=== PATIENT | male | born 1965 | race Caucasian/White ===

== ENCOUNTER 2017-09-16 14:26 | Observation (INO) ==
--- NOTE | 2017-09-16 18:28 | Internal Med History&Physical ---
Date of Encounter: 10/11/17 Time of Encounter: 18:27 Assessment and Plan (1) Chest pain Status: Inactive ASSESSMENT: - Chest pain DD *CAD *Muskuloskeletal CP - myofascial strain, costochondritis *GERD *Esophageal spasm PLAN: - cardiac enzymes x 2 q 8 hr - EKG now and in AM - ASA - O2 by NC to keep SpO2 greater than 92% - UA - Urine toxic screen - CBCD, BMP in AM - Fasting lipids - Morphine 2 mg IV q 2-4 hr PRN chest pain - Tylenol 650 mg PO q 4-6 hr PRN headache - Home meds (check list) - 2D Echo - Cardiology consult Qualifiers: Qualified Code(s): R07.9 - Chest pain, unspecified (2) Hyperlipemia Status: Acute Qualifiers: Hyperlipidemia type: unspecified Qualified Code(s): E78.5 - Hyperlipidemia , unspecified (3) Depression Status: Acute Qualifiers: Qualified Code(s): F32.9 - Major depressive disorder, single episode, unspecified (4) Diabetes Status: Acute We will hold metformin , stat acu- check with coverage (5) DVT prophylaxis Status: Acute The patient is admitted for observation and ambulatory, [place] [facility] [place] - H&P: HPI Chief complaint: CP Admitted From: Home Plans for Post Hospital Care: Home History of present illness: Mr. Llanos is a 51 year old male presents emergency department complaining of intermittent and progressively worsening chest pain for a couple of weeks The pain is a pressure and sharp pain that makes the left side of his neck and his left arm feel numb and is aggravated by exertion even standing up and associated with SOB, he was admitted to r/o ACS. Past Med Surg Social Fam HX - Past Medical History Medical history: diabetes, hyperlipidemia Psychiatric history: no psych history - Social History Smoking Status: Never smoker Smokeless Tobacco Status: No Alcohol use: none Drug use: none Internal Medicine - H&P: Meds Pravastatin Sodium [Pravachol] 40 mg PO DAILY 09/16/17 [History] Sertraline [Zoloft] 100 mg PO DAILY 09/16/17 [History] metFORMIN [Glucophage] 500 mg PO BID 09/16/17 [History] 3 Allergy/AdvReac Type Severity Reaction Status Date / Time No Known Allergies Allergy Verified 09/16/17 11:55 All Systems PM: A 10-system review of systems was performed and is negative for pertinent findings except as documented above in the HPI. - Constitutional Constitutional: no chills, no fever(s), no night sweats - Cardiovascular Cardiovascular ROS IM: chest pain, dyspnea, no diaphoresis, no lightheadedness, no palpitations, no syncope - Respiratory Respiratory: no cough, no dyspnea, no wheezing, no excessive phlegm production - Gastrointestinal Gastrointestinal: no abdominal pain, no diarrhea, no hematemesis, no hematochezia, no melena, no nausea, no vomiting - Neurological Neurological ROS: no confusion, no convulsions, no focal weakness, no numbness, no tingling, no tremor(s) - Head Head exam: Present: atraumatic, normocephalic - Neck Neck exam general surgery: Present: supple, trachea midline. Absent: lymphadenopathy - Respiratory Respiratory exam: Present: CTAB. Absent: accessory muscle use, rales, rhonchi, wheezes - Cardiovascular Cardiovascular exam: Present: RRR, +S1, +S2. Absent: diastolic murmur, gallop, rubs, systolic murmur - GI/Abdominal GI/Abdominal exam: Present: normal bowel sounds, soft, no peritoneal signs. Absent: distended, tenderness - Extremities Exam Extremities exam: Present: warm, radial pulses palpable and symmetrical. Absent : calf tenderness, cyanotic, pedal edema Internal Med - H&P Results - Labs CBC & Chem 7: 09/19/17 08:31 09/19/17 08:31
[2017-09-16] MEDS ORDERED: *HR* Morphine 2 MG/ML SYRINGE IVP PRN (18:31)
[2017-09-16] MEDS ORDERED: Nitroglycerin 0.4 MG TAB.SUBL SL PRN (18:31)
[2017-09-16] MEDS ORDERED: Ondansetron 4 MG/2 ML VIAL IVP PRN (18:31)
[2017-09-16] MEDS ORDERED: D5% in Water 1,000 ML IVC PRN (18:36)
[2017-09-16] MEDS ORDERED: Dextrose Gel 15 GM/37.5 ML TUBE PO PRN ×2 (18:36)
[2017-09-16] MEDS ORDERED: *HR* Dextrose 50 % in Water (Syg) 50 ML SYRINGE IVP PRN (18:36)
[2017-09-16] MEDS: Insulin LISPRO 300 UNITS/3 ML VIAL SQ SCH (21:11)
[2017-09-17 05:22] LABS: Hemoglobin A1C 7.6 %
[2017-09-17 05:25] LABS: Alanine Aminotransferase 37 Units/L (7-52); Albumin/Globulin Ratio 1.4 (1.1-2.2); Alkaline Phosphatase 76 Units/L (34-104); Aspartate Amino Transferase 22 Units/L (13-39); BUN/Creatinine Ratio 20 (6-26); Bilirubin,Direct 0.1 mg/dL (0.0-0.2); Bilirubin,Indirect 0.4 mg/dL (0.0-1.2); Bilirubin,Total 0.5 mg/dL (0.3-1.0); Blood Urea Nitrogen 20 mg/dL (6-20); Calcium 8.8 mg/dL (8.6-10.3); Carbon Dioxide 25 mEq/L (23-29); Chloride 103 mEq/L (98-107); Chol/HDL Ratio 4.8 (0-4.9); Cholesterol 172 mg/dL (< 200); Globulin 2.8 g/dL (2.4-3.5); Glucose 151 mg/dL (70-105); HDL Cholesterol 36 mg/dL (40-59); LDL Cholesterol,Calculated 71 mg/dL (0-99); Magnesium 1.9 mg/dL (1.6-2.6); Osmolality,Calculated 286 (280-300); Potassium 4.2 mEq/L (3.5-5.1); Sodium 135 mEq/L (136-145); Total Protein 6.8 g/dL (6.4-8.9); Triglycerides 326 mg/dL (< 150); eGFR For African Americans > 60 (> 60); eGFR For Non-African Americans > 60 (> 60)
[2017-09-17 05:39] LABS: INR 1.1; Thyroid Stimulating Hormone 2.575 mcIU/mL (0.340-5.600)
[2017-09-17 05:41] LABS: Activated Partial Thrombo Time 28.3 Seconds (26.0-36.0)
[2017-09-17 05:43] LABS: Basophils # 0.1 K/mcL (0.0-0.2); Basophils % 0.7 %; Eosinophils # 0.1 K/mcL (0.0-0.6); Eosinophils % 1.3 %; Hematocrit 48.1 % (37.5-50.1); Hemoglobin 15.9 g/dL (12.9-16.9); Immature Granulocytes % 1.1 % (0-4); Lymphocytes # 2.2 K/mcL (0.6-4.6); Lymphocytes % 24.1 %; Mean Corpuscular HGB Conc 33.1 g/dL (31.6-35.5); Mean Corpuscular Hemoglobin 29.2 pg (28.0-33.3); Mean Corpuscular Volume 88.4 fL (83.0-100.0); Mean Platelet Volume 10.6 fL (9.4-12.4); Monocytes # 0.7 K/mcL (0.0-1.3); Neutrophils # 5.8 K/mcL (1.6-8.9); Platelet Count 157 K/mcL (140-400); Red Blood Count 5.44 M/mcL (4.19-5.50); Red Cell Distribution Width 13.6 % (11.5-14.5); Segmented Neutrophils % 64.8 %
[2017-09-17] MEDS: Insulin LISPRO 300 UNITS/3 ML VIAL SQ SCH ×4 (08:57→22:20)
[2017-09-17] MEDS: Aspirin 81 MG TAB.CHEW PO SCH (08:58)
--- NOTE | 2017-09-17 17:19 | Internal Med Progress Note ---
Date of Encounter: 09/17/17 Time of Encounter: 11:00 - Assessment and plan (1) Chest pain Current Visit: Yes Status: Acute Assessment and plan: Patient no longer having chest pain this morning. Cardiac enzymes have been negative thus far. Echocardiogram showed mild diastolic dysfunction Nuclear stress test scheduled for 09/18/17 Qualifiers: Chest pain type: unspecified Qualified Code(s): R07.9 - Chest pain, unspecified (2) Mood disorder Current Visit: Yes Status: Acute Assessment and plan: -Continue SSRI (3) Hyperlipemia Current Visit: Yes Status: Acute Assessment and plan: -Continue statin Qualifiers: Hyperlipidemia type: unspecified Qualified Code(s): E78.5 - Hyperlipidemia , unspecified (4) Diabetes Current Visit: Yes Status: Acute Assessment and plan: -Cover with sliding scale insulin Qualifiers: Diabetes mellitus type: type 2 Diabetes mellitus complication status: without complication Diabetes mellitus [facility] insulin use: with [facility] use Qualified Code(s): E11.9 - Type 2 diabetes mellitus without complications ; 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 Enzymes have been negative thus far. Echocardiogram showed mild diastolic dysfunction Nuclear stress test scheduled for 09/18/17 - Constitutional Vitals: Temp Pulse Resp BP Pulse Ox 97.9 F 99 18 131/87 93 09/17/17 15:29 09/17/17 15:29 09/17/17 15:29 09/17/17 15:29 09/17/17 15:29 - Cardiovascular Cardiovascular exam: Present: RRR, +S1, +S2. Absent: diastolic murmur, gallop, rubs, systolic murmur Internal Medicine: Result - Labs CBC & Chem 7: 09/17/17 05:02 09/17/17 05:02 Labs: Short CBC 09/17/17 Range/Units 05:02 WBC 8.9 (4.3-11.1) K/mcL Hgb 15.9 (12.9-16.9) g/dL Hct 48.1 (37.5-50.1) % Plt Count 157 (140-400) K/mcL Neutrophils # 5.8 (1.6-8.9) K/mcL BMP 09/17/17 05:02 Sodium 135 L Potassium 4.2 Chloride 103 Carbon Dioxide 25 BUN 20 Creatinine 1.01 Glucose 151 H Calcium 8.8 Cardiac Enzymes 09/17/17 Range/Units 08:13 Troponin I < 0.03 (< 0.04) ng/mL Liver Function 09/17/17 Range/Units 05:02 Total Bilirubin 0.5 (0.3-1.0) mg/dL Direct Bilirubin 0.1 (0.0-0.2) mg/dL AST 22 (13-39) Units/L ALT 37 (7-52) Units/L Alkaline Phosphatase 76 (34-104) Units/L Albumin 4.0 (3.5-5.7) g/dL - ABG Interpretation ABG results: PT/INR, D-dimer PT 12.0 Seconds (9.4-12.1) 09/17/17 05:02 - Impressions Impressions Echocardiogram 09/17/17 18:31 Impressions: LVEF 50-55%. Normal LV chamber size, wall thickness and function. Mild left ventricular diastolic dysfunction. Normal right ventricular structure and function. Unable to estimate RVSP due to lack of TR jet. No significant valvular dysfunction. Left Ventricular Wall Motion: Rest Echo Findings All wall segments showed normal motion. Findings: Study Quality * Technically sub-optimal due to body habitus. ECG Findings * Normal sinus rhythm. Left Ventricle * LVEF 50-55%. * Normal LV chamber size, wall thickness and function. * Mild left ventricular diastolic dysfunction. Right Ventricle * Normal right ventricular structure and function. Left Atrium * Mild to moderately dilated left atrium. Right Atrium * Mildly dilated right atrium. Interatrial Septum * Interatrial septum not well evaluated. Aortic Valve * Trileaflet aortic valve with normal function. * No aortic regurgitation. * No aortic stenosis. Mitral Valve * Normal mitral valve structure and function. * No mitral stenosis. * No mitral regurgitation. Tricuspid Valve * Normal tricuspid valve structure and function. * No tricuspid regurgitation. * Unable to estimate RVSP due to lack of TR jet. Pulmonic Valve * Normal pulmonic valve structure and function. * No pulmonic regurgitation. Aorta * Normally sized aortic root. Pericardium * The pericardium appears normal. IVC * The IVC is not well evaluated. Pulmonary Artery * Normal visualized portions of the main pulmonary artery. Consult Discharge Plan - Plan Referrals: Alyx Diehl CNP [Primary Care Provider] -
[2017-09-18] MEDS ORDERED: Regadenoson 0.4 MG/5 ML SYRINGE IVP ONE (06:10)
[2017-09-18] MEDS: Insulin LISPRO 300 UNITS/3 ML VIAL SQ SCH ×4 (09:54→21:57)
[2017-09-18] MEDS: Aspirin 81 MG TAB.CHEW PO SCH (09:55)
--- NOTE | 2017-09-18 19:06 | Internal Med Progress Note ---
Date of Encounter: 09/18/17 Time of Encounter: 11:00 - Assessment and plan (1) Chest pain Current Visit: Yes Status: Acute Assessment and plan: Patient no longer having chest pain this morning. Cardiac enzymes have been negative thus far. Echocardiogram showed mild diastolic dysfunction Second part of nuclear stress test scheduled for 09/19/17 Qualifiers: Chest pain type: unspecified Qualified Code(s): R07.9 - Chest pain, unspecified (2) Mood disorder Current Visit: Yes Status: Acute Assessment and plan: -Continue SSRI (3) Hyperlipemia Current Visit: Yes Status: Acute Assessment and plan: -Continue statin Qualifiers: Hyperlipidemia type: unspecified Qualified Code(s): E78.5 - Hyperlipidemia , unspecified (4) Diabetes Current Visit: Yes Status: Acute Assessment and plan: -Cover with sliding scale insulin Qualifiers: Diabetes mellitus type: type 2 Diabetes mellitus complication status: without complication Diabetes mellitus [facility] insulin use: with [facility] use Qualified Code(s): E11.9 - Type 2 diabetes mellitus without complications ; Z79.4 - ferry terminal supervisor (current) use of insulin; Z79.4 - ferry terminal supervisor (current) use of insulin; Z79.4 - ferry terminal supervisor (current) use of insulin; Z79.4 - senior care ( current) use of insulin - Subjective Interval history: Patient here for ACS rule out and no longer having chest pain this morning. Enzymes have been negative thus far. Echocardiogram showed mild diastolic dysfunction Second part of nuclear stress test scheduled for 09/19/17 - Constitutional Vitals: Temp Pulse Resp BP Pulse Ox 97.8 F 90 24 121/81 94 09/18/17 18:44 09/18/17 18:44 09/18/17 18:44 09/18/17 18:44 09/18/17 18:44 - Respiratory Respiratory exam: Present: CTAB. Absent: accessory muscle use, rales, rhonchi, wheezes - Cardiovascular Cardiovascular exam: Present: RRR, +S1, +S2. Absent: diastolic murmur, gallop, rubs, systolic murmur Internal Medicine: Result - Labs CBC & Chem 7: 09/17/17 05:02 09/17/17 05:02 - ABG Interpretation ABG results: PT/INR, D-dimer PT 12.0 Seconds (9.4-12.1) 09/17/17 05:02 - VTE Documentation of Mechanical Device: Intermittent pneumatic compression device Consult Discharge Plan - Plan Referrals: Alyx Diehl CNP [Primary Care Provider] - (Please call upon discharge per PCP office...)
[2017-09-19] MEDS: Aspirin 81 MG TAB.CHEW PO SCH (08:56)
[2017-09-19 08:58] LABS: Basophils # 0.1 K/mcL (0.0-0.2); Basophils % 0.9 %; Eosinophils # 0.1 K/mcL (0.0-0.6); Eosinophils % 1.5 %; Hematocrit 45.7 % (37.5-50.1); Hemoglobin 15.4 g/dL (12.9-16.9); Immature Granulocytes % 0.9 % (0-4); Lymphocytes # 1.8 K/mcL (0.6-4.6); Lymphocytes % 18.3 %; Mean Corpuscular HGB Conc 33.7 g/dL (31.6-35.5); Mean Corpuscular Hemoglobin 29.4 pg (28.0-33.3); Mean Corpuscular Volume 87.4 fL (83.0-100.0); Mean Platelet Volume 10.4 fL (9.4-12.4); Monocytes # 0.8 K/mcL (0.0-1.3); Neutrophils # 6.8 K/mcL (1.6-8.9); Platelet Count 149 K/mcL (140-400); Red Blood Count 5.23 M/mcL (4.19-5.50); Red Cell Distribution Width 13.3 % (11.5-14.5); Segmented Neutrophils % 70.4 %
[2017-09-19] MEDS: Insulin LISPRO 300 UNITS/3 ML VIAL SQ SCH ×3 (09:00→17:00)
--- NOTE | 2017-09-19 16:25 | Discharge Summary ---
Date of Encounter: 09/19/17 Time of Encounter: 11:00 - Discharge Diagnosis (1) Chest pain Priority: Primary Status: Acute Qualifiers: Chest pain type: unspecified Qualified Code(s): R07.9 - Chest pain, unspecified (2) Mood disorder Priority: Secondary Status: Acute (3) Hyperlipemia Priority: Secondary Status: Acute Qualifiers: Hyperlipidemia type: unspecified Qualified Code(s): E78.5 - Hyperlipidemia , unspecified (4) Diabetes Priority: Secondary Status: Acute Qualifiers: Diabetes mellitus type: type 2 Diabetes mellitus complication status: without complication Diabetes mellitus [facility] insulin use: with intermodal owner operator truck driver use Qualified Code(s): E11.9 - Type 2 diabetes mellitus without complications ; Z79.4 - [facility] (current) use of insulin; Z79.4 - [facility] (current) use of insulin; Z79.4 - [facility] (current) use of insulin; 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 - Discharge Medications Home Medications: Pravastatin Sodium [Pravachol] 40 mg PO DAILY 09/16/17 [History] Sertraline [Zoloft] 100 mg PO DAILY 09/16/17 [History] metFORMIN [Glucophage] 500 mg PO BID 09/16/17 [History] Allergies/Adverse Reactions: 3 Allergy/AdvReac Type Severity Reaction Status Date / Time No Known Allergies Allergy Verified 09/16/17 11:55 Procedures/tests Complete & Pending: Procedures Performed prior 72 hours Category Date Time Status NM tracee perf SPECT multi [NM] Routine Exams 09/17/17 17:15 Taken EV echocardiogram Routine Y 09/17/17 18:31 Completed SP pharm nuclear stress Routine Y 09/18/17 07:30 Completed Date of admission: 09/16/17 16:34 Primary care physician: Alyx Diehl CNP Consults: 09/16/17 18:31 Consult to Cardiac Rehabilitation-Phase1 [CONS] Routine Comment: Reason for Consult: AMI Call Completed: Yes Consult to Nurse Navigator [CONS] Routine Comment: - Patient Status Disposition: Home, Self-Care - Discharge Instructions Follow Up With: Alyx Diehl CNP [Primary Care Provider] - (Please call upon discharge per PCP office...) Hospital course: Patient is a 51-year-old male with past medical history significant for diabetes hyperlipidemia and anxiety who presented to the ER on 09/16/17 due to chest pain. Patient reported of intermittent and progressively worsening chest pain for a couple of weeks. He characterized the pain as pressure and sharp that made the left side of his neck and his left arm feel numb. He reported that exertion provoked the chest pain and reported associated symptoms of shortness of breath. Patient was admitted to the medical surgical floor for ACS rule out. During patients hospital stay his cardiac biomarkers were negative and pharmacological stress test was negative for ischemia. Patient will be discharged to follow up with his primary care provider. - Time Spent with Patient Total time spent providing and/or coordinating discharge services: Less than 30 minutes - Constitutional Vitals: Temp Pulse Resp BP Pulse Ox 98.1 F 72 17 116/79 97 09/19/17 10:46 09/19/17 10:46 09/19/17 10:46 09/19/17 10:46 09/19/17 10:46 - Respiratory Respiratory exam: Present: CTAB. Absent: accessory muscle use, rales, rhonchi, wheezes - Cardiovascular Cardiovascular exam: Present: RRR, +S1, +S2. Absent: diastolic murmur, gallop, rubs, systolic murmur - VTE Documentation of Mechanical Device: Intermittent pneumatic compression device
[2017-09-19 16:32] VITALS: BP 113/80
[2017-09-19 17:47] LABS: BUN/Creatinine Ratio 14 (6-26); Blood Urea Nitrogen 15 mg/dL (6-20); Calcium 8.8 mg/dL (8.6-10.3); Carbon Dioxide 21 mEq/L (23-29); Chloride 105 mEq/L (98-107); Glucose 189 mg/dL (70-105); Osmolality,Calculated 290 (280-300); Potassium 4.2 mEq/L (3.5-5.1); Sodium 137 mEq/L (136-145); eGFR For African Americans > 60 (> 60); eGFR For Non-African Americans > 60 (> 60)
== END 2017-09-19 17:45 | disposition home or self-care (01) ==
LOC: 2ANU → SUATTDRO 16:34
PROVIDERS: ADMIT Internal Medicine Nephrology; ATTEND Hospitalist